=== PATIENT | female | born 1935 | race Caucasian/White ===

== ENCOUNTER 2018-03-06 06:20 | Emergency (ER) | payer OTHER ==
[~2018-03-06] VITALS: Ht 165.1 cm; Wt 90.7 kg
[2018-03-06 06:25] VITALS: Ht 165.1 cm; Wt 90.7 kg
[2018-03-06 10:46] VITALS: BP 151/78
== END 2018-03-06 10:20 | disposition home or self-care (01) ==
LOC: ED 06:20
DX: S81.811A Laceration without foreign body, right lower leg, initial encounter (principal); S51.811A Laceration without foreign body of right forearm, initial encounter; S80.12XA Contusion of left lower leg, initial encounter; W22.8XXA Striking against or struck by other objects, initial encounter; Y93.89 Activity, other specified; Y92.89 Other specified places as the place of occurrence of the external cause; Y99.8 Other external cause status
CPT/HCPCS: 90715; J1885; J2001; Q0092

== ENCOUNTER 2018-06-23 09:32 | Emergency (ER) | payer OTHER, BC ==
[~2018-06-23] VITALS: Ht 172.7 cm; Wt 95.3 kg
[2018-06-23 09:43] VITALS: Ht 172.7 cm; Wt 95.3 kg
[2018-06-23 10:57] LABS: microscopic required? YES; urine erythrocyte TRACE (NEGATIVE)
[2018-06-23 11:07] VITALS: BP 127/67
== END 2018-06-23 11:07 | disposition home or self-care (01) ==
LOC: ED 09:32
PROVIDERS: Emergency Medicine
DX: N39.0 Urinary tract infection, site not specified (principal); I48.91 Unspecified atrial fibrillation; G20 Parkinson's disease; Z86.73 Personal history of transient ischemic attack (TIA), and cerebral infarction without residual deficits
CPT/HCPCS: J0696

== ENCOUNTER 2018-09-09 10:48 | Emergency (ER) | payer OTHER, BC ==
[~2018-09-09] VITALS: Ht 165.1 cm; Wt 95.3 kg
[2018-09-09 11:04] VITALS: Ht 165.1 cm; Wt 95.3 kg
[2018-09-09 12:12] LABS: BASOPHIL % 1.1 % (0-2); PLATELET COUNT 359 x10^3mcL (130-400)
[2018-09-09 12:22] LABS: CALCIUM 9.3 mg/dL (8.5-10.1); CARBON DIOXIDE 29.5 mmol/L (21-32); CHLORIDE SERUM 107 mmol/L (98-107); CREATININE SERUM 1.5 mg/dL (0.6-1.0); GLUCOSE SERUM 110 mg/dL (74-106); POTASSIUM SERUM 4.5 mmol/L (3.5-5.1); SODIUM SERUM 144 mmol/L (136-145)
[2018-09-09 12:27] LABS: ALBUMIN 3.5 g/dL (3.4-5.0); ALKALINE PHOSPHATASE 97 U/L (46-116); ALT/SGPT 18 U/L (14-59); AST/SGOT 16 U/L (15-37); BILIRUBIN TOTAL 0.37 mg/dL (0.20-1.00); TOTAL PROTEIN, SERUM 7.4 g/dL (6.4-8.2)
[2018-09-09 12:33] LABS: RED CELL DISTRIBUTION WIDTH 17.1 % (11.5-14.5)
[2018-09-09 15:54] VITALS: BP 135/65
== END 2018-09-09 15:54 | disposition home or self-care (01) ==
LOC: ED 10:48
PROVIDERS: Emergency Medicine
DX: G89.29 Other chronic pain (principal); S81.812A Laceration without foreign body, left lower leg, initial encounter; M54.5 Low back pain; N39.0 Urinary tract infection, site not specified; V00.141A Fall from scooter (nonmotorized), initial encounter; Y93.I9 Activity, other involving external motion; Y92.89 Other specified places as the place of occurrence of the external cause; Y99.8 Other external cause status
CPT/HCPCS: J2001